=== PATIENT | male | born 1955 | race Caucasian/White ===

== ENCOUNTER → 2020-10-15 | Outpatient (CLI) | payer MEDICARE, OTHER ==
[~2020-10-15] MED LIST: ASPIRIN 325MG325 MG PO; CETIRIZINE HCL10 MG PO; COZAAR100 MG PO; COZAAR50 MG PO; FEOSOL325 MG PO; FLAGYL500 MG PO; IBUPROFEN800 MG PO; LEVAQUIN500 MG PO; LEVOTHYROXINE75 MCG PO; NORVASC 5 MG TAB5 MG PO; NORVASC10 MG PO; PANTOPRAZOLE SO40 MG PO; PRAVASTATIN SOD40 MG PO; PROTONIX40 MG PO; SYNTHROID 50 M50 MCG PO; SYNTHROID88 MCG PO; VANCOCIN IV 11000 MG IV; VITAMIN D1000 UNI1 PO; VITAMIN D31000 UNI1 PO; ZANTAC 150 MG150 MG PO; ZYRTEC10 MG PO
== END ==
LOC: CT 08:30
DX: R31.0 Gross hematuria (principal); K57.32 Diverticulitis of large intestine without perforation or abscess without bleeding
CPT/HCPCS: 36415; 82565; Q9967

== ENCOUNTER 2020-12-18 14:24 | Observation (INO) | payer MEDICARE, OTHER ==
[~2020-12-18] VITALS: Ht 185.4 cm; Wt 106.1 kg
[~2020-12-18 14:24] MED LIST changes: -ASPIRIN 325MG325 MG PO; -FEOSOL325 MG PO
[2020-12-18 15:15] LABS: RED BLOOD COUNT 5.76 M/UL (4.20-5.50); WHITE BLOOD COUNT 12.2 K/UL (4.5-11.0)
[2020-12-18 15:36] LABS: BUN/CREATININE RATIO 22 (0-10)
[2020-12-18] MEDS ORDERED: FEOSOL325 MG PO (19:47)
[2020-12-19 07:02] LABS: HEMOGLOBIN 17.2 gm/dl (14.0-17.5); RED BLOOD COUNT 5.56 M/UL (4.20-5.50); WHITE BLOOD COUNT 10.6 K/UL (4.5-11.0)
[2020-12-19 07:30] LABS: BUN/CREATININE RATIO 24 (0-10)
[2020-12-19] MEDS ORDERED: ASPIRIN 325MG325 MG PO (10:59)
== END 2020-12-19 19:20 | disposition home or self-care (01) ==
LOC: ER1 14:24 → CDU 18:52 → MED SURG 4 20:40
PROVIDERS: Emergency Medicine; ADMIT Internal Medicine
DX: G45.3 Amaurosis fugax (principal); E11.9 Type 2 diabetes mellitus without complications; I10 Essential (primary) hypertension; E78.5 Hyperlipidemia, unspecified; E03.9 Hypothyroidism, unspecified; D72.828 Other elevated white blood cell count; F40.240 Claustrophobia; R74.01 Elevation of levels of liver transaminase levels; K21.9 Gastro-esophageal reflux disease without esophagitis; Z86.73 Personal history of transient ischemic attack (TIA), and cerebral infarction without residual deficits; Z79.899 Other long term (current) drug therapy; Z20.822 Contact with and (suspected) exposure to COVID-19
CPT/HCPCS: ECHO; 36415; 70496; 70498; 70551; 71045; 80053; 80061; 82550; 82553; 83036; 83874; 84484; 85025; 85027; 85610; 85652; 85730; 86140; 93005; 93306; 96374; 99285; G0378; J2405; Q9967; U0002

== ENCOUNTER → 2021-05-14 | Outpatient (CLI) | payer MEDICARE ==
[~2021-05-14] MED LIST changes: +ADVAIR 250-501 EACH INH; +AMLODIPINE BESY10 MG PO; +ASPIR-TRIN325 MG PO; +ASPIRIN 325MG325 MG PO; +FEOSOL325 MG PO; +IPRAT-ALBUT 0.5-3 ML NEB; +LEVOCETIRIZINE D5 MG PO; +METFORMIN ER G500 MG PO; +PERCOCET 5/325 T1 EA PO
== END ==
LOC: KOH-I 09:57
DX: R50.9 Fever, unspecified (principal)
CPT/HCPCS: 70210; 71046

== ENCOUNTER 2021-05-20 03:14 | Inpatient (IN) | payer MEDICARE, OTHER ==
[~2021-05-20] VITALS: Ht 185.4 cm; Wt 104.3 kg
[~2021-05-20 03:14] MED LIST changes: -ADVAIR 250-501 EACH INH; -AMLODIPINE BESY10 MG PO; -ASPIR-TRIN325 MG PO; -IPRAT-ALBUT 0.5-3 ML NEB; -LEVOCETIRIZINE D5 MG PO; -METFORMIN ER G500 MG PO; -PERCOCET 5/325 T1 EA PO
[2021-05-20 04:23] LABS: HEMOGLOBIN 15.2 gm/dl (14.0-17.5); RED BLOOD COUNT 4.96 M/UL (4.20-5.50)
[2021-05-20 04:51] LABS: BUN/CREATININE RATIO 16 (0-10)
[2021-05-20] MEDS ORDERED: LEVOCETIRIZINE D5 MG PO (10:18)
[2021-05-20] MEDS ORDERED: METFORMIN ER G500 MG PO (10:21)
[2021-05-20] MEDS ORDERED: AMLODIPINE BESY10 MG PO (10:22)
[2021-05-20] MEDS ORDERED: ADVAIR 250-501 EACH INH (10:25)
[2021-05-20] MEDS ORDERED: ASPIR-TRIN325 MG PO (10:32)
--- NOTE | 2021-05-20 18:21 | NUR ---
1730 AFTER PT RECIVED PAIN MEDICATIONS AND BREATHING TREATMENT, PT IS BREATHING EASIER, SPO2 IS 97% RESP RATE HAS DECREASED, PT IS ABLE TO REST AND STATES THAT HE FEELS MUCH BETTER FROM THE PAIN MEDICATION
[2021-05-21 03:00] LABS: WHITE BLOOD COUNT 22.9 K/UL (4.5-11.0)
[2021-05-21 03:06] LABS: HEMOGLOBIN 12.4 gm/dl (14.0-17.5); RED BLOOD COUNT 4.08 M/UL (4.20-5.50)
[2021-05-21 03:36] LABS: BUN/CREATININE RATIO 21 (0-10)
[2021-05-21 09:13] LABS: ACINETOBACTER BAUMANNII Not Detected (Negative); CANDIDA ALBICANS Not Detected (Negative); CANDIDA KRUSEI Not Detected (Negative); CANDIDA TROPICALIS Not Detected (Negative); ENTEROCOCCUS Not Detected (Negative); ESCHERICHIA COLI Not Detected (Negative); HAEMOPHILUS INFLUENZAE Not Detected (Negative); KLEBSIELLA OXYTOCA Not Detected (Negative); KLEBSIELLA PNEUMONIAE Not Detected (Negative); KPC-CARBAPENEM-RESISTANCE GENE Not Detected (Negative); PROTEUS Not Detected (Negative); PSEUDOMONAS AERUGINOSA Not Detected (Negative); SERRATIA MARCESANS Not Detected (Negative); STAPHYLOCOCCUS Not Detected (Negative); STAPHYLOCOCCUS AUREUS Not Detected (Negative); STREP AGALACTIAE (GROUP B) Not Detected (Negative); STREP PYOGENES (GROUP A) Not Detected (Negative); STREPTOCOCCUS Not Detected (Negative); mecA (METHICILLIN RESIST GENE Not Detected (Negative); vanA/B (VANCOMYCIN RESIST GENE Not Detected (Negative)
[2021-05-22 04:33] LABS: HEMOGLOBIN 13.8 gm/dl (14.0-17.5); RED BLOOD COUNT 4.48 M/UL (4.20-5.50); WHITE BLOOD COUNT 19.5 K/UL (4.5-11.0)
[2021-05-22 05:08] LABS: BUN/CREATININE RATIO 17 (0-10)
[2021-05-23 04:39] LABS: RED BLOOD COUNT 4.48 M/UL (4.20-5.50); WHITE BLOOD COUNT 14.9 K/UL (4.5-11.0)
[2021-05-23 05:04] LABS: BUN/CREATININE RATIO 21 (0-10)
[2021-05-24 03:25] LABS: HEMOGLOBIN 12.9 gm/dl (14.0-17.5); RED BLOOD COUNT 4.49 M/UL (4.20-5.50); WHITE BLOOD COUNT 14.3 K/UL (4.5-11.0)
[2021-05-24 03:36] LABS: BUN/CREATININE RATIO 21 (0-10)
[2021-05-25 05:10] LABS: HEMOGLOBIN 13.8 gm/dl (14.0-17.5); RED BLOOD COUNT 4.85 M/UL (4.20-5.50); WHITE BLOOD COUNT 16.6 K/UL (4.5-11.0)
[2021-05-25 05:32] LABS: BUN/CREATININE RATIO 18 (0-10)
[2021-05-26 04:56] LABS: HEMOGLOBIN 14.5 gm/dl (14.0-17.5); RED BLOOD COUNT 4.78 M/UL (4.20-5.50); WHITE BLOOD COUNT 14.1 K/UL (4.5-11.0)
[2021-05-26 05:19] LABS: BUN/CREATININE RATIO 19 (0-10)
[2021-05-27 05:32] LABS: RED BLOOD COUNT 4.62 M/UL (4.20-5.50); WHITE BLOOD COUNT 12.9 K/UL (4.5-11.0)
[2021-05-27 05:52] LABS: BUN/CREATININE RATIO 18 (0-10)
--- NOTE | 2021-05-27 09:15 | NUR ---
PATIENT WALKING O2 SAT 95% ON ROOM AIR.
[2021-05-27] MEDS ORDERED: IPRAT-ALBUT 0.5-3 ML NEB (11:30)
[2021-05-27] MEDS ORDERED: PERCOCET 5/325 T1 EA PO (11:30)
== END 2021-05-27 13:38 | disposition home health service (06) | DRG 871 ==
LOC: ER1 03:14 → MED SURG 4 09:15 → CDU 09:15 → MED SURG 4 16:36 → PROG CARE 19:51 → MED SURG 4 05-23 09:27
PROVIDERS: Internal Medicine Infectious Disease; Physician Assistant; ADMIT Internal Medicine
PROC: 0F903ZZ Drainage of Liver, Percutaneous Approach (ICD-10-PCS; principal; 2021-05-20)
PROC: 02HV33Z Insertion of Infusion Device into Superior Vena Cava, Percutaneous Approach (ICD-10-PCS; 2021-05-20)
PROC: B24BZZ4 Ultrasonography of Heart with Aorta, Transesophageal (ICD-10-PCS; 2021-05-27)
DX: A41.9 Sepsis, unspecified organism (principal); K75.0 Abscess of liver; J96.91 Respiratory failure, unspecified with hypoxia; N17.9 Acute kidney failure, unspecified; Z20.822 Contact with and (suspected) exposure to COVID-19; R65.20 Severe sepsis without septic shock; E11.9 Type 2 diabetes mellitus without complications; I34.0 Nonrheumatic mitral (valve) insufficiency; E03.9 Hypothyroidism, unspecified; E78.5 Hyperlipidemia, unspecified; I10 Essential (primary) hypertension; Z90.49 Acquired absence of other specified parts of digestive tract; Z79.82 Long term (current) use of aspirin; Z86.73 Personal history of transient ischemic attack (TIA), and cerebral infarction without residual deficits
CPT/HCPCS: ECHO; 0240U; 36415; 36600; 71045; 74018; 74160; 80048; 80053; 80202; 82105; 82550; 82553; 82803; 82962; 83605; 83690; 83735; 83874; 84100; 84132; 84484; 85025; 85027; 85610; 86140; 87040; 87070; 87075; 87077; 87150; 87186; 87205; 93005; 93306; 94640; 94664; 94760; 96365; 96367; 96375; 97161; 97165; 99285; C1751; J0295; J0360; J0696; J1170; J1200; J1885; J2185; J2270; J2405; J2543; J2550; J3370; J3475; J7030; J7070; Q9967

== ENCOUNTER → 2021-06-01 | Outpatient (CLI) | payer MEDICARE, OTHER ==
[~2021-06-01] MED LIST changes: +ADVAIR 250-501 EACH INH; +AMLODIPINE BESY10 MG PO; +ASPIR-TRIN325 MG PO; +IPRAT-ALBUT 0.5-3 ML NEB; +LEVOCETIRIZINE D5 MG PO; +METFORMIN ER G500 MG PO; +PERCOCET 5/325 T1 EA PO
== END ==
LOC: US 14:00
PROC: 0F913ZZ Drainage of Right Lobe Liver, Percutaneous Approach (ICD-10-PCS; principal; 2021-06-01)
DX: K75.0 Abscess of liver (principal)
CPT/HCPCS: 76080; 76705; 87070; 87205; Q9967

== ENCOUNTER → 2021-06-08 | Outpatient (CLI) | payer MEDICARE | LOC: KOH-I 09:30 | DX: M54.9 Dorsalgia, unspecified (principal); M47.816 Spondylosis without myelopathy or radiculopathy, lumbar region | CPT/HCPCS: 72100 ==

== ENCOUNTER → 2021-06-11 | Outpatient (CLI) | payer MEDICARE | LOC: CT 11:32 | DX: K75.0 Abscess of liver (principal); R10.9 Unspecified abdominal pain; K76.89 Other specified diseases of liver | CPT/HCPCS: 74160; Q9967 ==

== ENCOUNTER → 2021-06-24 | Outpatient (CLI) | payer MEDICARE | LOC: OPSV 11:42 | DX: K75.0 Abscess of liver (principal) | CPT/HCPCS: G0463 ==

== ENCOUNTER → 2021-07-10 | Outpatient (CLI) | payer MEDICARE | LOC: CT 06:47 | DX: K75.0 Abscess of liver (principal); K76.89 Other specified diseases of liver; K57.30 Diverticulosis of large intestine without perforation or abscess without bleeding; K63.89 Other specified diseases of intestine | CPT/HCPCS: Q9967 ==

== ENCOUNTER → 2021-07-13 | Outpatient (CLI) | payer MEDICARE | LOC: KOH-I 08:06 | DX: D72.829 Elevated white blood cell count, unspecified (principal); D45 Polycythemia vera; D51.9 Vitamin B12 deficiency anemia, unspecified; R77.9 Abnormality of plasma protein, unspecified | CPT/HCPCS: 77075 ==

== ENCOUNTER → 2021-10-28 | Outpatient (CLI) | payer MEDICARE | LOC: KOH-I 10:51 | DX: Z87.891 Personal history of nicotine dependence (principal); R91.8 Other nonspecific abnormal finding of lung field | CPT/HCPCS: 71271 ==

== ENCOUNTER 2022-05-26 18:41 | Emergency (ER) | payer MEDICARE ==
[2022-05-26 20:13] LABS: HEMOGLOBIN 16.6 gm/dl (14.0-17.5); RED BLOOD COUNT 5.63 M/UL (4.20-5.50); WHITE BLOOD COUNT 16.4 K/UL (4.5-11.0)
[2022-05-26 20:37] LABS: BUN/CREATININE RATIO 26 (0-10)
== END 2022-05-26 21:21 | disposition home or self-care (01) ==
LOC: ER1 18:41
PROVIDERS: Physician Assistant
DX: K91.840 Postprocedural hemorrhage of a digestive system organ or structure following a digestive system procedure (principal); I10 Essential (primary) hypertension; E11.9 Type 2 diabetes mellitus without complications
CPT/HCPCS: 80053; 85025; 86850; 86900; 86901; 96374; 99283; C9113

== ENCOUNTER → 2022-06-09 | Outpatient (CLI) | payer MEDICARE | LOC: HEART 5 12:57 | DX: I31.3 Pericardial effusion (noninflammatory) (principal); I51.89 Other ill-defined heart diseases; I51.7 Cardiomegaly | CPT/HCPCS: 93306 ==

== ENCOUNTER → 2022-07-16 | Outpatient (CLI) | payer MEDICARE | LOC: EXRD 08:00 | DX: K76.0 Fatty (change of) liver, not elsewhere classified (principal); R93.2 Abnormal findings on diagnostic imaging of liver and biliary tract | CPT/HCPCS: 76700 ==